=== PATIENT | male | born 1955 | race Caucasian/White ===

== ENCOUNTER 2018-09-21 11:17 | Day surgery (SDC) | payer BC ==
[~2018-09-21 11:17] MED LIST: LIDOCAINE HCL 1% MPF 30 SOL ONE; PROPOFOL 500 MG/50 ML EMU IV ONE
[2018-09-21 13:20] VITALS: PULSE 51; RESP 12; O2SAT 98
[2018-09-21 13:40] VITALS: BP 150/91; TEMP 97.8
== END 2018-09-21 13:49 | disposition home or self-care (01) ==
LOC: SURG 11:17
PROVIDERS: ATTEND Surgery
DX: Z12.11 Encounter for screening for malignant neoplasm of colon (principal); Z86.010 Personal history of colon polyps; D12.3 Benign neoplasm of transverse colon
CPT/HCPCS: 99001; J2001; J2704